=== PATIENT | female | born 1945 | race African-American/Black ===

== ENCOUNTER 2018-09-19 13:44 | Outpatient (CLI) | payer MEDICARE, BC ==
--- NOTE | 2018-09-19 16:53 | MRI ---
MRI RIGHT HIP WITHOUT IV CONTRAST: HISTORY: A 73-year-old female with a history of right hip pin for years. TECHNIQUE: Multiplanar, multisequence MR examination of the right hip is performed. FINDINGS: There is marked right hip joint space loss with prominent subchondral cystic changes involving the la teral acetabulum and the superior femoral head, with some adjacent marrow edema, particularly in the adjacent femoral head, extending into the femoral neck. This is consistent with severe arthrosis. T he abnormal marrow signal may just be related to the subchondral cystic change. The possibility of a n associated small insufficiency fracture of the femoral head is a consideration as well. There is c onsiderable blunting and indistinction of the anterior and lateral labrum, evidence for severe degene ration with some associated degenerative tearing and fraying. There are some left hip acetabulum sub chondral cystic changes but without significant adjacent abnormal marrow edema. Gluteal muscle inser tion regions appear unremarkable. IMPRESSION: 1. Severe right hip joint space loss with extensive subchondral cystic changes of both the femoral h ead and the acetabulum, with abnormal marrow signal adjacent to both the femoral head and the acetabu lar subchondral cystic changes, particularly the femoral head, extending into the femoral neck. This may all be related to just severe arthrosis and subchondral cystic changes, with reactive marrow. T he possibility of a coexistent right hip insufficiency type subchondral fracture is certainly a consi deration as well. 2. Severe degenerative changes of the right hip labrum. POS: CHRIS
== END 2018-09-19 13:45 | disposition home or self-care (01) ==
LOC: BICMRI 13:44
PROVIDERS: ATTEND Anesthesiology Pain Medicine
DX: M16.11 Unilateral primary osteoarthritis, right hip (principal); M25.851 Other specified joint disorders, right hip; R93.7 Abnormal findings on diagnostic imaging of other parts of musculoskeletal system

== ENCOUNTER 2018-09-20 13:15 | Outpatient (CLI) | payer MEDICARE, BC ==
--- NOTE | 2018-09-20 15:44 | MRI ---
LUMBAR SPINE MRI WITHOUT CONTRAST: 09/20/18 COMPARISON: None. HISTORY: Lumbar radiculopathy, back pain. TECHNIQUE: Multiplanar and multisequence MR imaging of the lumbar spine is provided without contrast. FINDINGS: There is levoscoliosis of the lumbar spine incompletely assessed on this exam. The sagittal STIR imag ing demonstrates no focal area of osseous marrow edema aside from degenerative marrow edema involving the inferior end plate of the L1 vertebral body. Assuming five lumbar type vertebral bodies, The co nus medullaris terminates at the L1-2 level. Anterolisthesis of L3 on L4 is noted measuring 6 mm. T12-L1: There is disc space narrowing and disc desiccation with bilateral facet hypertrophy. No signi ficant central canal or neural foraminal stenosis. L1-2: Disc space narrowing and disc desiccation and mild disc bulge. Mild right sided facet hypertrop hy. No significant central canal and neural foraminal stenosis. L2-3: Mild anterolisthesis noted measuring 4-5 mm. Bilateral facet hypertrophy and hypertrophy of the ligamentum flavum, right greater than left. Mild disc bulge. There is mild/moderate right neural foraminal stenosis. There is mild central canal stenosis with mod erate right lateral recess stenosis. L3-4: Disc space narrowing and disc desiccation and mild disc bulge and foraminal disc protrusion on right. Bilateral facet hypertrophy present with moderate right and mild left neural foraminal stenosi s. Mild right lateral recess stenosis. L4-5: There is disc space narrowing and disc desiccation with bilateral facet hypertrophy. There is n o significant central canal stenosis. Mild bilateral neural foraminal stenosis. L5-S1: Disc space narrowing and disc desiccation. Anterior and lateral osteophyte formation noted on the left. There is mild left neural foraminal stenosis. No significant central canal or right neural foraminal stenosis. Incompletely imaged T2 hyperintense lesion emanates from upper pole of right kidney measuring approxi mately 1.5 cm. There is a questionable incompletely imaged T2 hyperintense lesion within the right lo be of the liver measuring 2 cm. IMPRESSION: 1. Multilevel lumbar spine degenerative change, most prominent at L3-4. 2. Questionable T2 hyperintense lesion within the right lobe of the liver. Recommend further ass essment via CT of the abdomen with and without contrast using a hepatic mass protocol. Code T
== END 2018-09-20 13:16 | disposition home or self-care (01) ==
LOC: BICMRI 13:15
PROVIDERS: ATTEND Anesthesiology Pain Medicine
DX: M47.26 Other spondylosis with radiculopathy, lumbar region (principal); M16.9 Osteoarthritis of hip, unspecified
CPT/HCPCS: 72148

== ENCOUNTER 2018-09-23 13:23 | Outpatient (CLI) | payer MEDICARE, BC ==
--- NOTE | 2018-09-23 15:44 | CT ---
CT ABDOMEN WITH AND WITHOUT CONTRAST: INDICATIONS: Follow up liver mass seen on MRI lumbar spine. TECHNIQUE: Multiple axial tomograms obtained through the abdomen, pre and post IV contrast. Post contrast image s were obtained in the arterial phase and in the portal venous phase. FINDINGS: There is a large cyst involving the superior left lobe of the liver, extending under the hemidiaphrag m, on the right. This mass exhibits cystic densities by CT. It measures 7 to 8 cm in diameter. Just along the inferior margin, anteriorly, there is a 1.5 cm cyst. In the mid right liver, there is a 2.4 cm cyst. Along the inferomedial border of the right lobe is a 1.3 cm cyst. At least one othe r subcentimeter cyst in the right lobe is noted. Probable small, subcentimeter cyst along the inferi or border of the left lobe, in the midline. Spleen and pancreas unremarkable. Adrenal glands unremarkable. Review of the kidneys shows mild to moderate right hydronephrosis, which involves the calices and the renal pelvis. The visualized ureter is normal in caliber. The kidneys otherwise appear unremarkabl e and show equal function. Bowel loops appear normal. The visualized abdominal aorta is of normal caliber. Degenerative change s in the lumbar spine, especially prominent at L3-L4, L4-L5, and L5-S1. IMPRESSION: 1. There are multiple hepatic cysts, with the largest measuring approximately 8 cm in diameter, as d escribed above. 2. Mild to moderate right hydronephrosis. The visualized right ureter is normal. This appears to r epresent a ureteropelvic junction obstruction. Suggest urologic consultation. POS: TPC
== END 2018-09-23 13:24 | disposition home or self-care (01) ==
LOC: BICCT 13:23
PROVIDERS: ATTEND Anesthesiology Pain Medicine
DX: R16.0 Hepatomegaly, not elsewhere classified (principal); K76.89 Other specified diseases of liver; N13.30 Unspecified hydronephrosis
CPT/HCPCS: 74170; 82565

== ENCOUNTER 2018-11-14 09:31 | Outpatient (CLI) | payer MEDICARE, BC ==
[2018-11-14] MEDS ORDERED: Iopamidol 370 76% 100 ML VIAL ONE (13:08)
--- NOTE | 2018-11-14 13:36 | CT ---
CT ABDOMEN AND PELVIS WITH AND WITHOUT CONTRAST: HISTORY: N13.5, ureteropelvic junction obstruction. COMPARISON: CT 09/23/2018. FINDINGS: There are innumerable similar-appearing hepatic cysts. The liver, pancreas, and adrenal glands are u nremarkable. The aortic contour is nonaneurysmal. No retroperitoneal adenopathy. No dilated loops of large or small bowel. On the noncontrast portion of the examination, there is no nephroureteral lithiasis. There is mild right-sided hydronephrosis without hydroureter. The urinary bladder is unremarkable. Moderate to severe right-sided hip degenerative disease with subcortical cyst formation and near-comp lete degenerative height loss of the hip. Moderate levoscoliosis lumbar spine. No abnormal renal enhancing mass. No abnormal urothelial enhancing mass. IMPRESSION: 1. Mild right-sided hydronephrosis without hydroureter suggesting ureteropelvic junction obstruction . Please see the intravenous pyelogram images from the same day. 2. No nephroureterolithiasis. 3. NO abnormal enhancing urothelial mass. 4. Large hepatic cyst. POS: CHRIS
--- NOTE | 2018-11-14 13:43 | RAD ---
XR IVP TOMOGRAM: HISTORY: Ureteral stricture. COMPARISON: CT same day and CT 09/23/2018. FINDINGS: On the riding instructor radiograph, there is mild levoscoliosis. There are multiple phleboliths in the pelvis. There is adequate contrast in the left renal collecting systems at 7 minutes post void as well as con trast within the urinary bladder. At 12 minutes, both ureters are seen. There is mild right side hy dronephrosis with mild blunting of the right-side renal calyces.. The left-sided renal calyces are n ormal. No right-sided hydroureter. No left-sided hydroureteral nephrosis. IMPRESSION: Findings most suggestive of right-sided ureteropelvic junction obstruction, mild. POS: CHRIS
== END 2018-11-14 09:32 | disposition home or self-care (01) ==
LOC: RAD 09:31
PROVIDERS: ATTEND Urology
DX: N13.5 Crossing vessel and stricture of ureter without hydronephrosis (principal); N39.46 Mixed incontinence; N13.30 Unspecified hydronephrosis; K76.89 Other specified diseases of liver
CPT/HCPCS: 36415; 74178; 74410; 80048; 81001; 87077; 87086; 87186; Q9967

== ENCOUNTER 2019-01-02 12:26 | Outpatient (CLI) | payer MEDICARE, BC ==
--- NOTE | 2019-01-02 15:23 | NM ---
RADIONUCLIDE DIURETIC RENOGRAM: HISTORY: Crossing vessel and stricture of ureter without hydronephrosis. RADIOPHARMACEUTICAL: 8 mCi Technetium 99m-mebrofenin injected intravenously. DIURETIC: 34 mg IV Lasix administered 15 minutes prior to injection of the radiopharmaceutical. FINDINGS: The exam was performed with a Sun catheter in place. There is normal blood flow to both kidneys with normal tracer uptake on either side. Tracer excretio n by the kidneys is within normal limits with mildly excretion on the right compared to the left. Th e renogram curves by downsloping on either side. The differential function measures 51% on the left and 49% on the right. IMPRESSION: No evidence of high-grade obstruction. POS: TPC
== END 2019-01-02 12:27 | disposition home or self-care (01) ==
LOC: NM 12:26
PROVIDERS: ATTEND Urology
DX: N13.1 Hydronephrosis with ureteral stricture, not elsewhere classified (principal)
CPT/HCPCS: 78708; A4641; A9562

== ENCOUNTER 2020-09-11 09:08 | Outpatient (CLI) | payer MEDICARE, BC ==
--- NOTE | 2020-09-11 11:10 | BD ---
DEXA BONE DENSITY STUDY: HISTORY: Postmenopausal. FINDINGS: Lumbar Spine: BMD (g/cm2) L1 1.092 T-Score: +0.9 L2 1.122 T-Score: +0.9 L3 1.018 T-Score: -0.6 L4 1.068 T-Score: +0.1 L1-L4 1.072 T-Score: +0.2 Femoral Neck: 0.644 T-Score: -1.8 Total Femur: 0.881 T-Score: -0.5 Impression: 1. Osteopenia of the left femoral neck. Normal bone mineral density of the lumbar spine. 2. Ten-year fracture risk of a major osteoporotic fracture is 13% and a hip fracture is 3%. These f racture probabilities were calculated for an untreated patient. POS: NOHELIA
== END 2020-09-11 09:09 | disposition home or self-care (01) ==
LOC: BICMAMMO 09:08
PROVIDERS: ATTEND Family Medicine
DX: M81.0 Age-related osteoporosis without current pathological fracture (principal); M85.852 Other specified disorders of bone density and structure, left thigh
CPT/HCPCS: 77080

== ENCOUNTER 2022-09-07 09:13 | Outpatient (CLI) | payer MEDICARE, BC | END 2022-09-07 09:14 | disposition home or self-care (01) | LOC: BICMAMMO 09:13 | PROVIDERS: ATTEND Family Medicine | DX: Z13.820 Encounter for screening for osteoporosis (principal); N95.9 Unspecified menopausal and perimenopausal disorder; M85.852 Other specified disorders of bone density and structure, left thigh | CPT/HCPCS: 77080 ==